=== PATIENT | male | born 1985 | race Two or more races ===

== ENCOUNTER → 2024-05-08 | Outpatient (CLI) | payer OTHER | END | disposition home or self-care (01) | LOC: XYW 15:45 | PROVIDERS: ATTEND Student in an Organized Health Care Education/Training Program | DX: Z01.810 Encounter for preprocedural cardiovascular examination (principal); I51.89 Other ill-defined heart diseases; R94.31 Abnormal electrocardiogram [ECG] [EKG] | CPT/HCPCS: 93306 ==

== ENCOUNTER → 2024-05-21 | Outpatient (CLI) | payer OTHER ==
[~2024-05-21] VITALS: Ht 182.9 cm; Wt 120.2 kg
[~2024-05-21] MED LIST: ATROPINE SULF 0.5 MG/5ML SYR ONE; DOBUTamine 1000MCG/ML 250 ML IV ONE; METOPROLOL TARTRATE 1MG/1ML-5ML VIAL IV ONE
[2024-05-21] MEDS: DOBUTamine 1000MCG/ML 100 ML IV ONE (09:22)
[2024-05-21 09:31] VITALS: BP 110/40
== END | disposition home or self-care (01) ==
LOC: XYW 08:12
PROVIDERS: ATTEND Student in an Organized Health Care Education/Training Program
DX: R94.31 Abnormal electrocardiogram [ECG] [EKG] (principal)
CPT/HCPCS: 93017; 93350; J1250; J0461